=== PATIENT | male | born 1975 | race Caucasian/White ===

== ENCOUNTER 2016-09-05 11:30 | Emergency (ER) | payer SELFPAY ==
[2016-09-05 11:35] VITALS: BP 135/82
--- NOTE | 2016-09-05 13:09 | UC ---
Skin Complaint HPI - HPI Summary HPI Summary: Concerned because he has a rash from a bug bite did not see a tick - History of Current Complaint Chief Complaint: UCAllergicReaction Time Seen by Provider: 09/05/16 12:59 Stated Complaint: RASH Hx Obtained From: Patient Onset/Duration: Sudden Onset, Lasting Days - 2, Still Present Timing: Constant Onset Severity: Mild Current Severity: Mild Location: Diffuse Aggravating: Nothing Alleviating: Nothing Associated Signs & Symptoms: Positive: Negative Related History: Possible Reaction to: Insect - Allergy/Home Medications Allergies/Adverse Reactions: Allergies Allergy/AdvReac Type Severity Reaction Status Date / Time No Known Allergies Allergy Verified 09/05/16 12:40 Home Medications: Home Medications Arnica [Arnica Tincture] 1 applic TOPICAL DAILY PRN 09/05/16 [History Confirmed 09/05/16] Ibuprofen [Advil] 400 mg PO Q8HR PRN 09/05/16 [History Confirmed 09/05/16] Review of Systems Constitutional: Negative Skin: Rash - itchy red Eyes: Negative ENT: Negative Respiratory: Negative Cardiovascular: Negative Gastrointestinal: Negative Genitourinary: Negative Motor: Negative Neurovascular: Negative Musculoskeletal: Negative Neurological: Negative Psychological: Negative All Other Systems Reviewed And Are Negative: Yes PMH/Surg Hx/FS Hx/Imm Hx Previously Healthy: Yes Other History Of: Negative For: Anticoagulant Therapy - Surgical History Surgical History: Yes Surgery Procedure, Year, and Place: appy - Family History Known Family History: Positive: None - Social History 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 Negative: Nasal congestion, Nasal drainage, Tonsillar swelling, Tonsillar exudate, Trismus, Muffled/hoarse voice Dental Exam: Normal Neck exam: Normal Neck: Positive: Supple, Nontender Respiratory Exam: Normal Respiratory: Positive: Chest non-tender, Lungs clear, Normal breath sounds, No respiratory distress, No accessory muscle use Cardiovascular Exam: Normal Cardiovascular: Positive: RRR, No Murmur, Pulses Normal, Brisk Capillary Refill Musculoskeletal Exam: Normal Musculoskeletal: Positive: Strength Intact, ROM Intact, No Edema Neurological Exam: Normal Neurological: Positive: Alert, Muscle Tone Normal Psychological Exam: Normal Psychological: Positive: Normal Response To Family Skin: Positive: rashes - light itchy red rash-difuse Course/Dx - Course Course Of Treatment: lyme testing, prednisone and benadryl, cool compress follow with pcp prn - Differential Diagnoses - Skin Complaint Differential Diagnoses: Allergic Reaction, Cellulitis, Contact Dermatitis, Impetigo, Local Allergic Reaction - Diagnoses Provider Diagnoses: Allergic response Discharge - Discharge Plan Condition: Stable Disposition: HOME Prescriptions: Diphenhydramine HCl [Benadryl Allergy 25 MG TAB] 25 - 50 mg PO Q6H PRN #30 tab PRN Reason: itching and swelling predniSONE TAB* [Deltasone TAB*] 40 mg PO DAILY #10 tab Patient Education Materials: Urticaria (ED), Cold Compress or Soak (ED) Referrals: Britton Lopez MD [Primary Care Provider] - 1 Week
== END 2016-09-05 13:30 | disposition home or self-care (01) ==
LOC: UCEAST 11:30
DX: T78.40XA Allergy, unspecified, initial encounter (principal)
CPT/HCPCS: 86618; 99202; G0463

== ENCOUNTER 2018-07-18 16:26 | Emergency (ER) | payer OTHER ==
[2018-07-18 16:44] VITALS: BP 114/65
[2018-07-18] MEDS ORDERED: Tetan/Diph/Pertus SYR(Tdap)* 0.5 ML SYR(BOOSTRIX) use SYR IM ONE (17:02)
--- NOTE | 2018-07-18 17:09 | UC ---
Upper Extremity HPI - HPI Summary HPI Summary: 42 year old male, denies PMH, denies medications, presents after getting laceration on left thumb, nail while at work ([employer]). Patient states was using automatic juicer, put finger too close to rotating juicer and cut by a plastic piece. no loss of sensation, bleeding controlled. unsure of Tdap status, does not remember last shot. - History of Current Complaint Chief Complaint: UCUpperExtremity Stated Complaint: THUMB INJURY Time Seen by Provider: 07/18/18 16:27 Hx Obtained From: Patient ?: No Onset/Duration: Sudden Onset, Lasting Hours Severity Initially: Moderate Severity Currently: Moderate Pain Intensity: 2 Pain Scale Used: 0-10 Numeric Location Of Pain: Is Discrete @ - left thumb Aggravating Factor(s): Movement Alleviating Factor(s): Nothing Associated Signs And Symptoms: Positive: Negative, Other - laceration - Allergies/Home Medications Allergies/Adverse Reactions: Allergies Allergy/AdvReac Type Severity Reaction Status Date / Time No Known Allergies Allergy Verified 07/18/18 16:44 Home Medications: Home Medications Naproxen Sodium [Naproxen 220 mg] 220 mg PO DAILY PRN 07/18/18 [History Confirmed 07/18/18] PMH/Surg Hx/FS Hx/Imm Hx Previously Healthy: Yes Other History Of: Negative For: Anticoagulant Therapy - Surgical History Surgical History: Yes Surgery Procedure, Year, and Place: appy - Family History Known Family History: Positive: None, Non-Contributory - Social History Alcohol Use: Occasionally Substance Use Type: None Smoking Status (MU): Never Smoked Tobacco - Immunization History Most Recent Tetanus Shot: unknown Review of Systems All Other Systems Reviewed And Are Negative: Yes Skin: Positive: Other - laceration, bruising Motor: Positive: Negative Is Patient Immunocompromised?: No Physical Exam Triage Information Reviewed: Yes Appearance: Well-Appearing, No Pain Distress, Well-Nourished Vital Signs: Initial Vital Signs Temp 98.8 F 07/18/18 16:28 Pulse 62 07/18/18 16:28 Resp 18 07/18/18 16:28 BP 114/65 07/18/18 16:28 Pulse Ox 100 07/18/18 16:28 Vital Signs Reviewed: Yes Eyes: Positive: Conjunctiva Clear Musculoskeletal: Positive: Strength Intact, ROM Intact, Edema @ - mild left thumb Neurological Exam: Normal Neurological: Positive: Other: - no loss of sensation Psychological Exam: Normal Skin Exam: Normal Upper Extremity Course/Dx - Course Course Of Treatment: - area irrigated well. - Tdap given - skin glue and steri-strip over area - Clean wounds, no abx, continue to monitor - Monitor area for any signs of redness, drainage, which could be infect, return if they appear - keep area clean, dry - No soaking, bathing, submerging under water (ie doing dishes without glove) x 3 days - Ok to wash hands, pat dry well - Work note given - Differential Dx/Diagnosis Differential Diagnosis/HQI/PQRI: Laceration, Strain, Sprain Provider Diagnosis: Laceration of thumb, left Discharge - Sign-Out/Discharge Documenting (check all that apply): Patient Departure All imaging exams completed and their final reports reviewed: No Studies - Discharge Plan Condition: Good Disposition: HOME Patient Education Materials: Laceration (DC), Skin Adhesive Care (ED) Forms: *Work Release Referrals: Britton Lopez MD [Primary Care Provider] - Additional Instructions: - Monitor area for any signs of redness, drainage, which could be infect, return if they appear - keep area clean, dry - No soaking, bathing, submerging under water (ie doing dishes without glove) x 3 days - Ok to wash hands, pat dry well - Work note given - Billing Disposition and Condition Condition: GOOD Disposition: Home - Attestation Statements Provider Attestation: I was available for consult. This patient was seen by the [facility]. The patient was not presented to , seen by or examined by wy -Yanelis Min MD
== END 2018-07-18 18:07 | disposition home or self-care (01) ==
LOC: UCEAST 16:26
DX: S61.012A Laceration without foreign body of left thumb without damage to nail, initial encounter (principal); W26.8XXA Contact with other sharp object(s), not elsewhere classified, initial encounter; Y92.89 Other specified places as the place of occurrence of the external cause
CPT/HCPCS: 90715; 99211; G0463